=== PATIENT | male | born 1990 | race Caucasian/White ===

== ENCOUNTER 2017-01-07 08:29 | Emergency (ER) | payer OTHER ==
[~2017-01-07] VITALS: Ht 175.3 cm; Wt 81.6 kg
[2017-01-07 08:53] LABS: BASOPHIL % 0.2 % (0-2); PLATELET COUNT 323 x10^3mcL (130-400); RED CELL DISTRIBUTION WIDTH 13.5 % (11.5-14.5)
[2017-01-07 09:31] LABS: CARBON DIOXIDE 28.1 mmol/L (21-32); CHLORIDE SERUM 107 mmol/L (98-107); GLUCOSE SERUM 115 mg/dL (74-106); POTASSIUM SERUM 5.1 mmol/L (3.5-5.1); SODIUM SERUM 142 mmol/L (136-145)
[2017-01-07 09:32] LABS: CALCIUM 8.6 mg/dL (8.5-10.1); CREATININE SERUM 1.1 mg/dL (0.7-1.3); GFR1 > 60 mL/min
[2017-01-07 09:44] LABS: ALBUMIN 3.6 g/dL (3.4-5.0); ALT/SGPT 80 U/L (16-63); AST/SGOT 39 U/L (15-37); BILIRUBIN TOTAL 0.54 mg/dL (0.20-1.00); TOTAL PROTEIN, SERUM 6.9 g/dL (6.4-8.2)
[2017-01-07 09:45] LABS: ALKALINE PHOSPHATASE 82 U/L (46-116)
[2017-01-07 09:46] LABS: T4(THYROXINE) 7.5 ug/dL (4.7-13.3)
[2017-01-07 09:49] LABS: AMPHETAMINE QUAL UR NEGATIVE (NEG <=1000)
[2017-01-07 11:39] VITALS: BP 125/73
== END 2017-01-07 13:15 | disposition short-term general hospital (02) ==
LOC: ED 08:29
PROVIDERS: Emergency Medicine
DX: I48.91 Unspecified atrial fibrillation (principal); Z88.1 Allergy status to other antibiotic agents
CPT/HCPCS: 80307; 83880; J0153; J3475; J3490; J7030; Q0092